=== PATIENT | male | born 1940 | race Caucasian/White ===

== ENCOUNTER 2023-02-13 02:39 | Emergency (ER) | payer MEDICARE, OTHER ==
[~2023-02-13] VITALS: Ht 177.8 cm; Wt 64.4 kg
--- NOTE | 2023-02-13 03:00 | NUR ---
[id number], from longterm, R eye hematoma and swelling s/p fall hit head on the floor while reaching something, no loc. [id number] baseline answers questions
[2023-02-13] MEDS ORDERED: ACETAMINOPHEN ES 500 MG TABLET ONE (03:17)
--- NOTE | 2023-02-13 03:23 | NUR ---
PT TAKEN TO CT
[2023-02-13] MEDS ORDERED: ACETAMINOPHEN ES 500 MG TABLET PO ONE (03:30)
--- NOTE | 2023-02-13 03:41 | NUR ---
PT BACK FROM CT
--- NOTE | 2023-02-13 05:05 | NUR ---
[facility] CALLED FOR BLS TRANSPORT. ETA 09
--- NOTE | 2023-02-13 09:28 | NUR ---
[facility] AT BEDSIDE FOR [employer]. REPORT GIVEN.
[2023-02-13 09:36] VITALS: BP 152/88
== END 2023-02-13 09:37 ==
LOC: ER 02:41
DX: S00.11XA Contusion of right eyelid and periocular area, initial encounter (principal); E78.5 Hyperlipidemia, unspecified; K21.9 Gastro-esophageal reflux disease without esophagitis; F32.A Depression, unspecified; Z88.0 Allergy status to penicillin; W18.30XA Fall on same level, unspecified, initial encounter; Y93.89 Activity, other specified; Y92.89 Other specified places as the place of occurrence of the external cause; Y99.8 Other external cause status
CPT/HCPCS: 70450-TC; 70486-TC; 72125-TC